=== PATIENT | female | born 1975 | race Caucasian/White ===

== ENCOUNTER 2023-05-27 11:53 | Emergency (ER) | payer MEDICARE, MEDICAID, SELFPAY ==
[2023-05-27 12:07] VITALS: BP 120/83; PULSE 66; RESP 17; TEMP 36.7; O2SAT 97; BMI 20.5
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
[2023-05-27 15:05] VITALS: BP 114/82; PULSE 76; RESP 14; O2SAT 95
[2023-05-27 15:23] VITALS: BP 114/82; PULSE 76; RESP 14; O2SAT 95
== END 2023-05-27 15:23 | disposition home or self-care (01) ==
PROVIDERS: Emergency Provider Emergency Medicine; PCP Family Medicine
DX: M25.512 Pain in left shoulder (principal); M25.522 Pain in left elbow; W22.8XXA Striking against or struck by other objects, initial encounter
CPT/HCPCS: 73030; 73080; 99283

== ENCOUNTER 2024-08-16 15:20 | Emergency (ER) | payer MEDICARE, MEDICAID, SELFPAY ==
--- NOTE | 2024-08-16 15:22 | XRR_ITS ---
PROCEDURE INFORMATION: Exam: XR Chest Exam date and time: 08/16/2024 5:19 PM Age: 49 years old Clinical indication: Shortness of breath; Additional info: SOB TECHNIQUE: Imaging protocol: Radiologic exam of the chest. Views: 1 view. COMPARISON: CR XR shoulder LT min 2V* [id number] 05/27/2023 2:41 PM FINDINGS: Lungs: Unremarkable. No consolidation. Pleural spaces: Unremarkable. No pleural effusion. No pneumothorax. Heart/Mediastinum: Unremarkable. No cardiomegaly. Bones/joints: Unremarkable. XR/XR chest 1V portable [id number] IMPRESSION: No acute or otherwise significant plain radiographic cardiopulmonary abnormality.
[2024-08-16 15:32] VITALS: BP 122/76; PULSE 68; RESP 17; TEMP 36.6; O2SAT 99; BMI 20.1
[2024-08-16 17:15] VITALS: BP 125/84; PULSE 74; RESP 19; O2SAT 97
--- NOTE | 2024-08-16 18:04 | ECG_ITS ---
[facility] Test Date: 2024-08-16 Pat Name: Deepa Akins Department: Room: Gender: Female District Sales Representative: : 1975 Requested By: Karlos Taylor Order Number: [id number] Sanders MD: Seferino Zuniga M.D. Measurements Intervals [place] Rate: 62 P: 76 HI: 152 QRS: 137 QRSD: 104 T: 61 QT: 378 QTc: 385 Interpretive Statements SINUS RHYTHM INCOMPLETE RIGHT BUNDLE BRANCH BLOCK [90+ ms QRS DURATION, TERMINAL R IN V1/V2, 40+ ms S IN I/aVL/V4/V5/V6] POSSIBLE RIGHT VENTRICULAR HYPERTROPHY [SOME/ALL OF: PROMINENT R IN V1, LATE TRANSITION, RAD, AMIE, SSS] No previous ECG available for comparison Electronically Signed On 08-16-2024 22:34:24 [employer] by Seferino Zuniga M.D. [id number]
--- NOTE | 2024-08-16 18:11 | ED_ITS ---
HPI - URI/Sore Throat 2 General: Chief Complaint: Upper Respiratory Infection Stated Complaint: back pain, lung pain Time Seen by Provider: 08/16/24 17:17 Source: patient Mode of arrival: ambulatory Limitations: no limitations History of Present Illness: Patient is a 49-year-old female with no pertinent past medical history reporting to the emergency department complaining of myalgias and shortness of breath beginning this morning. Denies known recent sick contacts, but states that her has cancer and they were recently in the hospital and she also took a few of her children to doctors appointments and thinks she may have gotten sick here. Pain began to her bilateral thoracic muscles, but since have migrated to her central chest and states that she is having severe pleuritic chest pain. Pain is not reported to be reproducible with palpation or movement, states she can only feel it when she takes deep breath or coughs. She has not taken anything for her symptoms. She is denying any upper respiratory symptoms, palpitations, urinary symptoms, or other symptoms at this time. She has no history of heart attacks, strokes, asthma, COPD, or kidney stones. At this time she is 99% on room air, rest of her vitals normal. MD elicited complaint: other (SOB) Pertinent past history: other (none) Onset (ago): hour(s) Consistency: constant and progressively worsening Severity: moderate Able to tolerate fluids by mouth: Yes Exacerbating factors: deep breaths Relieving factors: nothing Context: sick contacts (possible) Associated symptoms: Reports chest pain; Deny abdominal pain, chills, diarrhea, ear or mastoid pain, fever(s), headache(s), nausea or vomiting Treatments prior to arrival: none Related Data Home Medications Medication Instructions Recorded Confirmed No Known Home Medications 07/04/22 07/04/22 Allergies Allergy/AdvReac Type Severity Reaction Status Date / Time Sulfa (Sulfonamide Allergy Unknown Unknown Verified 08/16/24 15:36 Antibiotics) Review of Systems 2 General: Reports: 10 or more systems reviewed and unremarkable except in HPI and below Const: Denies: fever(s), chills or fatigue Eyes: Denies: change in vision ENMT: Denies: throat pain, ear or mastoid pain or nasal discharge Card: Reports: chest pain; Denies: palpitations, swelling of feet/ankles or lightheadedness Resp: Reports: dyspnea, non-productive cough and pain on inspiration; Denies: wheezing GI: Denies: abdominal pain, nausea, vomiting, diarrhea or constipation : Denies: flank pain, difficulty voiding, dysuria or urinary frequency Musc: Reports: back pain; Denies: neck pain or joint pain Skin/Breast: Denies: rash Neuro: Denies: headache(s), numbness in extremities or weakness in extremities Physical Exam 2 Const: COMMON NORMALS: no acute distress, patient oriented x3 and no limitations GENERAL APPEARANCE: cooperative, comfortable and well developed ORIENTATION/CONSCIOUSNESS: Yes awake, Yes oriented to person, Yes oriented to place and Yes oriented to time HENMT: COMMON NORMALS: normocephalic, atraumatic and hearing grossly normal bilaterally HEAD & SCALP: normocephalic and atraumatic Eye: COMMON NORMALS: Equal, round and reactive pupils present, EOMs intact bilaterally and conjunctivae normal CONJUNCTIVA: Yes conjunctivae normal P UPIL: Yes Equal, round and reactive pupils present Neck/C-Spine: COMMON NORMALS: full ROM, supple and no JVD Resp: COMMON NORMALS: normal respiratory effort, No retractions, No use of accessory muscles and clear to auscultation bilaterally AUSCULTATION: clear to auscultation bilaterally Cardio: COMMON NORMALS: no JVD, regular rate, regular rhythm, No clicks present (Cardio), No murmurs present (Cardio) and No rub (Cardio) RATE: r egular rate RHYTHM: regular rhythm Back/Pelvis: COMMON NORMALS: thoracic and lumbar spine normal to inspection, no thoracic nor lumbar tenderness and thoraco-lumbar ROM normal Extremity: COMMON NORMALS: normal to inspection, full ROM and capillary refill normal Neuro: COMMON NORMALS: patient oriented x3, CN's II-XII intact bilaterally, moves all extremities, no focal motor deficits and no sensory deficits noted SENSORIUM/ORIENTATION: Yes oriented to person, Yes oriented to place and Yes oriented to time Skin: COMMON NORMALS: no rashes or lesions noted GENERAL SKIN EXAM: no rashes or lesions noted Course 2 Vital Signs: Vital signs: Vital Signs Temperature 97.9 F 08/16/24 15:32 Pulse Rate 74 08/16/24 17:15 Respiratory Rate 19 H 08/16/24 17:15 Blood Pressure 125/84 08/16/24 17:15 Pulse Oximetry 97 08/16/24 17:15 Oxygen Delivery Me thod Room Air 08/16/24 17:15 MDM - URI/Sore Throat Medical Decision Making Patient presented with acute onset of pleurodynia and shortness of breath. Potentially some sick contact exposure. Her vitals have been stable throughout ED course. EKG obtained and reviewed with physician showing normal sinus rhythm with no acute STEMI. Her chest x-ray was unremarkable. Swab was negative though this only tested for COVID flu and RSV. Her lab work was all completely normal including a normal urinalysis. Potentially this could be a viral syndrome, however could also be a costochondritis versus other general musculoskeletal pain. She was given ibuprofen here, and prior to discharge we will try a shot of muscle relaxer and steroid in case this is musculoskeletal or costochondritis. She is instructed to closely follow-up with primary care to make sure that her symptoms are improving and to begin treating symptomatically for what I believed to be a viral infection with her potential sick contact exposure. Return precautions were given, all other questions and concerns addressed. Lab Data 08/16/24 18:20 08/16/24 18:20 Radiology Impressions Chest X-Ray 08/16/24 15:22 IMPRESSION: No acute or otherwise significant plain radiographic cardiopulmonary abnormality. Laboratory Results WBC 9.19 10^3/uL (3.29-11.43) 08/16/24 18:20 RBC 4.83 10^6/uL (3.85-5.65) 08/16/24 18:20 Hgb 15.50 g/dL (11.27-16.99) 08/16/24 18:20 Hct 45.8 % (36-47) 08/16/24 18:20 MCV 94.8 fl (85-98) 08/16/24 18:20 MCH 32.1 pg (27-33) 08/16/24 18:20 MCHC 33.8 g/dL (30-55) 08/16/24 18:20 RDW 11.5 % (12.1-15.1) L 08/16/24 18:20 Plt Count 202 10^3/cmm (157-399) 08/16/24 18:20 MPV 10.4 fL (7.4-10.4) 08/16/24 18:20 Neut % (Auto) 55.1 % 08/16/24 18:20 Lymph % (Auto) 33.1 % 08/16/24 18:20 Antelope % (Auto) 8.5 % 08/16/24 18:20 Eos % (Auto) 2.4 % 08/16/24 18:20 Baso % (Auto) 0.7 % 08/16/24 18:20 Neut # (Auto) 5.07 10^3/uL (1.8-7.7) 08/16/24 18:20 Lymph # (Auto) 3.0 10^3/uL (0.8-4.8) 08/16/24 18:20 [place]elope # (Auto) 0.8 10^3/uL (0.2-0.9) 08/16/24 18:20 Eos # (Auto) 0.2 10^3/uL (0.0-0.8) 08/16/24 18:20 Baso # (Auto) 0.1 10^3/uL (0.0-0.1) 08/16/24 18:20 Nucleated RBC % (auto) 0 % 08/16/24 18:20 Nucleated RBCs # 0.0 /100WBC 08/16/24 18:20 Sodium 138 mmol/L (136-145) 08/16/24 18:20 Potassium 3.8 mmol/L (3.5-5.1) 08/16/24 18:20 Chloride 101 mmol/L (98-107) 08/16/24 18:20 Carbon Dioxide 27 mmol/L (22-29) 08/16/24 18:20 Anion Gap 13.8 (5-19) 08/16/24 18:20 BUN 16 mg/dL (6-20) 08/16/24 18:20 Creatinine 0.9 mg/dL (0.5-0.9) 08/16/24 18:20 GFR Calculation 66.5 mL/min (90-130) L 08/16/24 18:20 Glucose 91 mg/dL (65-115) 08/16/24 18:20 Calculated Osmolality 287 mOsm/kg (285-295) 08/16/24 18:20 Calcium 10.5 mg/dL (8.5-10.5) 08/16/24 18:20 Total Bilirubin 1.0 mg/dL (0.15-1.2) 08/16/24 18:20 AST 28 U/L (0-32) 08/16/24 18:20 ALT 11 U/L (0-33) 08/16/24 18:20 Alkaline Phosphatase 65 U/L (35-105) 08/16/24 18:20 Troponin T Baseline < 6 ng/L (0-10) 08/16/24 18:20 Total Protein 8.5 g/dL (6.6-8.7) 08/16/24 18:20 Albumin 5.1 g/dL (3.5-5.2) 08/16/24 18:20 Globulin 3.4 g/dL (1.3-4.6) 08/16/24 18:20 Urine Color Yellow (Yellow) 08/16/24 18:10 Urine Appearance Clear (CLEAR) 08/16/24 18:10 Urine pH 5.5 (5-7) 08/16/24 18:10 Ur Specific [place] 1.013 (1.005-1.030) 08/16/24 18:10 Urine Protein Negative (Negative) 08/16/24 18:10 Urine Glucose (UA) Negative (Normal) 08/16/24 18:10 Urine Ketones Negative (Negative) 08/16/24 18:10 Urine Blood Negative (Negative) 08/16/24 18:10 Urine Nitrate Negative (Negative) 08/16/24 18:10 Urine Bilirubin Negative (Negative) 08/16/24 18:10 Urine Urobilinogen 1.0 mg/dL (Negative) 08/16/24 18:10 Ur Leukocyte Esterase 1+ (Negative) A 08/16/24 18:10 Urine RBC 0-2 /hpf (0-2) 08/16/24 18:10 Urine WBC 11-20 /hpf (0-5) H 08/16/24 18:10 Ur Squamous Epith Cells 0-5 /hpf (0-5) 08/16/24 18:10 Amorphous Sediment Not Reportable 08/16/24 18:10 Urine Bacteria Trace /hpf (NONE) 08/16/24 18:10 Hyaline Casts 0-4 /lpf H 08/16/24 18:10 Coronavirus (PCR) Negative (Negative) 08/16/24 18:02 Influenza A (PCR) Negative (Negative) 08/16/24 18:02 Influenza Type B (PCR) Negative (Negative) 08/16/24 18:02 RSV (PCR) Negative (Negative) 08/16/24 18:02 All radiology interpretation(s) finalized by discharge Discharge Plan Discharge Patient Disposition: Home Clinical Impression: Viral infection Condition: Stable Prescriptions: No Action No Known Home Medications Discharge Orders: Discharge ED (Routine); Ordered 08/16/24 Ordered By: Karlos Boo Referrals: Mellissa Ivan MD [Primary Care Provider] - Patient Instructions: Viral Syndrome (ED) Activity Restrictions/Additional Instructions: Plenty of fluids. Alternate Tylenol and Ibuprofen. Contact precaution, rest and recovery. Close follow up with primary care provider. Return with any new or worsening symptoms. 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
[2024-08-16 18:23] LABS: Bilirubin Urine Negative (Negative); Blood Urine Negative (Negative); Glucose Urine UA Negative (Normal); Ketones Urine Negative (Negative); Leukocyte Esterase Urine 1+ (Negative); Nitrate Urine Negative (Negative); Protein Urine Negative (Negative); Specific Gravity, Urine 1.013 (1.005-1.030); Urine Appearance Clear (CLEAR); Urine Color Yellow (Yellow); pH Urine 5.5 (5-7)
[2024-08-16 18:25] LABS: Add Urine Microscopic? YES; Bacteria Urine Trace /hpf; Hyaline Casts Urine 0-4 /lpf; RBC Urine 0-2 /hpf (0-2); Squamous Epithelial Cell Urine 0-5 /hpf (0-5)
[2024-08-16] MEDS: ibuprofen 600 mg Tablet 800 MG PO (18:30)
[2024-08-16 18:47] LABS: Basophils # 0.1 10^3/uL (0.0-0.1); Basophils % 0.7 %; Eosinophils # 0.2 10^3/uL (0.0-0.8); Eosinophils % 2.4 %; Hematocrit 45.8 % (36-47); Lymphocytes % 33.1 %; Mean Corpuscular HGB Conc 33.8 g/dL (30-55); Mean Corpuscular Hemoglobin 32.1 pg (27-33); Mean Corpuscular Volume 94.8 fl (85-98); Mean Platelet Volume 10.4 fL (7.4-10.4); Monocytes # 0.8 10^3/uL (0.2-0.9); Monocytes % 8.5 %; Neutrophils # 5.07 10^3/uL (1.8-7.7); Neutrophils % 55.1 %; Nucleated Red Blood Cells % 0 %; Platelet Count 202 10^3/cmm (157-399); Red Blood Count 4.83 10^6/uL (3.85-5.65); Red Cell Distribution Width 11.5 % (12.1-15.1); White Blood Count 9.19 10^3/uL (3.29-11.43)
[2024-08-16 18:58] LABS: Covid PCR NEGATIVE (Negative); Influenza A NEGATIVE (Negative); Influenza B NEGATIVE (Negative); Respiratory Syncytial Virus Ce NEGATIVE (Negative)
[2024-08-16 19:00] LABS: Troponin(5th) Baseline < 6 ng/L (0-10)
[2024-08-16 19:03] LABS: Alanine Aminotransferase 11 U/L (0-33); Albumin Level 5.1 g/dL (3.5-5.2); Alkaline Phosphatase 65 U/L (35-105); Anion Gap 13.8 (5-19); Aspartate Amino Transferase 28 U/L (0-32); Blood Urea Nitrogen 16 mg/dL (6-20); Calcium 10.5 mg/dL (8.5-10.5); Carbon Dioxide 27 mmol/L (22-29); Chloride 101 mmol/L (98-107); Creatinine Clr Calc Pharmacy 69.5429; Globulin 3.4 g/dL (1.3-4.6); Glomerular Filtration Rate 66.5 mL/min (90-130); Glucose 91 mg/dL (65-115); Osmolality Calculated 287 mOsm/kg (285-295); Potassium 3.8 mmol/L (3.5-5.1); Sodium 138 mmol/L (136-145); Total Protein 8.5 g/dL (6.6-8.7)
[2024-08-16] MEDS: orphenadrine 30 mg/mL Inj 2 mL 60 MG IM (19:35)
[2024-08-16] MEDS: dexamethasone 10 mg/mL INJ IM (19:36)
[2024-08-16 19:41] VITALS: BP 117/84; PULSE 83; O2SAT 96
== END 2024-08-16 19:42 | disposition home or self-care (01) ==
PROVIDERS: Emergency Provider Physician Assistant; PCP Family Medicine
DX: B33.8 Other specified viral diseases (principal); Z11.52 Encounter for screening for COVID-19
CPT/HCPCS: 0241U; 36415; 71045; 80053; 81001; 84484; 85025; 93005; 96372; 99285; J1100; J2360

== ENCOUNTER → 2024-10-03 12:57 | Outpatient (BNVA) | payer MEDICARE, MEDICAID, SELFPAY | PROVIDERS: PCP Family Medicine; Referring Provider Nurse Practitioner Family; Visit Provider Nurse Practitioner Family | DX: L72.11 Pilar cyst (principal); D22.5 Melanocytic nevi of trunk; L81.4 Other melanin hyperpigmentation; L57.8 Other skin changes due to chronic exposure to nonionizing radiation; L82.1 Other seborrheic keratosis; L72.0 Epidermal cyst | CPT/HCPCS: 10060; 99203 ==

== ENCOUNTER → 2024-11-08 12:15 | Outpatient (BNVA) | payer MEDICARE, MEDICAID, SELFPAY | PROVIDERS: PCP Family Medicine; Visit Provider Dermatology | DX: L72.11 Pilar cyst (principal); R20.8 Other disturbances of skin sensation; R23.8 Other skin changes; L53.8 Other specified erythematous conditions | CPT/HCPCS: 11423; 13121 ==

== ENCOUNTER → 2025-02-10 09:00 | Outpatient (BNVA) | payer MEDICARE, MEDICAID, SELFPAY | PROVIDERS: PCP Family Medicine; Referring Provider Nurse Practitioner Family; Visit Provider Psychiatry & Neurology Neurology | DX: G25.0 Essential tremor (principal); E55.9 Vitamin D deficiency, unspecified | CPT/HCPCS: 36415; 82306; 82607; 82746; 83735; 84439; 84443; 99203 ==

== ENCOUNTER 2025-02-18 07:10 | Outpatient (CLI) | payer MEDICARE, MEDICAID, SELFPAY ==
--- NOTE | 2025-02-18 07:30 | MR_ITS ---
WS: [id number] MRI BRAIN WITH AND WITHOUT CONTRAST HISTORY: R25.1 - Tremor, unspecified COMPARISON: None available. TECHNIQUE: Multiplanar imaging performed through the brain with MultiHance 13 ml's IV. No acute infarcts are seen. Watts-white matter differentiation is well preserved. Normal hippocampal formations. No susceptibility artifacts or prior lacunar infarcts. Ventricles and extra-axial spaces are normal. Clivus and pituitary gland are normal. Visualized posterior fossa and brainstem are also normal. Postcontrast images are negative for masses or vascular malformations. Dural venous sinuses are normal. Paranasal sinuses: Well aerated with no significant disease. Mastoid air cells: Normal. Calvarium and scalp: Normal. MR/MR head wo/w con [id number] IMPRESSION: 1. Normal MRI brain with contrast. 2. No prior infarcts or hemorrhage. 3. No significant volume loss or atrophy. 4. Normal hippocampal formations.
--- NOTE | 2025-02-18 08:15 | MR_ITS ---
WS: [id number] MRA CAROTID ARTERIES HISTORY: R25.1 - Tremor, unspecified COMPARISON: None available. TECHNIQUE: MRA is performed with intravenous gadolinium. MIP and source images are reviewed. Right: No significant stenosis in the cervical carotid artery. Bifurcation is intact. Left: No significant stenosis in the cervical carotid artery. Bifurcation is intact. LEFT cervical carotid artery arises from the base of the innominate. Subclavian Arteries: Normal. Vertebral Arteries: Both vertebral arteries are patent. LEFT is dominant. No stenosis identified. The very distal RIGHT vertebral artery is not identified. MR/MR angio neck w con* [id number] IMPRESSION: 1. No cervical carotid artery stenosis or occlusion. 2. Bovine arch. 3. Small caliber RIGHT vertebral artery. RIGHT vertebral artery is not identif ied distally. This may be due to small size, occlusion or variant location.
[2025-02-18] MEDS: gadobenate dimeglumine 20 mL vial 13 ML IV (08:31)
--- NOTE | 2025-02-18 09:00 | MR_ITS ---
WS: [id number] MRA ANGIOGRAPHY [place] OF [place] HISTORY: R25.1 - Tremor, unspecified COMPARISON: None available. TECHNIQUE: 3-D MR angiography is performed of the [place]. All images are reviewed including source images. Distal vertebral and basilar arteries are intact with no significant stenosis or plaque. Small caliber distal RIGHT vertebral artery. The very distal vertebral artery is absent. Posterior cerebral arteries are normal course and caliber. Posterior communicating arteries are both patent. Intracranial portion of the internal carotid arteries are normal course and caliber. No significant atherosclerosis, stenosis or aneurysm identified. Middle and anterior cerebral arteries are both patent with no significant disease. Anterior communicating artery is also normal. MR/MR angio head wo con [id number] IMPRESSION: Small caliber RIGHT vertebral artery with variant course distally. Likely devel opmental variant. No evidence for dissection or thrombus. Remaining [place] is normal.
== END 2025-02-18 07:11 | disposition home or self-care (01) ==
PROVIDERS: PCP Family Medicine; Visit Provider Psychiatry & Neurology Neurology
DX: R25.1 Tremor, unspecified (principal); R93.0 Abnormal findings on diagnostic imaging of skull and head, not elsewhere classified
CPT/HCPCS: 70544; 70548; 70553